=== PATIENT | male | born 2000 ===

== ENCOUNTER 2022-04-19 13:44 | Emergency (ER) | payer OTHER ==
[~2022-04-19] VITALS: Ht 182.9 cm; Wt 94.3 kg
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
[2022-04-19] MEDS ORDERED: morphine INJ 10 MG/ML 1ML (SYR OR VIAL) IVP STA (14:13)
[2022-04-19] MEDS ORDERED: TETANUS,DIPTH,PERTUSS P/F (BOOSTRIX) 0.5 ML VIAL IM ONE (14:15)
[2022-04-19 14:24] LABS: BASOPHILS % (AUTO) 0 % (0-10); EOSINOPHILS # (AUTO) 0.1 10^3/uL (0.0-0.3); EOSINOPHILS % (AUTO) 1 % (0-10); HEMATOCRIT 44 % (40-54); HEMOGLOBIN 15.3 g/dL (13.3-17.7); LYMPHOCYTES % (AUTO) 9 % (12-44); MEAN CORPUSCULAR HEMOGLOBIN 30 pg (25-34); MEAN CORPUSCULAR HGB CONC 35 g/dL (32-36); MEAN CORPUSCULAR VOLUME 87 fL (80-99); MEAN PLATELET VOLUME 9.9 fL (9.0-12.2); MONOCYTES # (AUTO) 0.7 10^3/uL (0.0-1.0); MONOCYTES % (AUTO) 6 % (0-12); NEUTROPHILS # (AUTO) 9.8 10^3/uL (1.8-7.8); NEUTROPHILS % (AUTO) 84 % (42-75); PLATELET COUNT 307 10^3/uL (130-400); WHITE BLOOD COUNT 11.7 10^3/uL (4.3-11.0)
[2022-04-19 14:34] LABS: ALBUMIN 4.4 GM/DL (3.2-4.5); POTASSIUM 4.1 MMOL/L (3.6-5.0)
[2022-04-19 14:36] LABS: CALCIUM 9.4 MG/DL (8.5-10.1)
[2022-04-19 14:37] LABS: TOTAL PROTEIN 7.6 GM/DL (6.4-8.2)
[2022-04-19 14:39] LABS: BILIRUBIN,TOTAL 0.5 MG/DL (0.1-1.0)
[2022-04-19 14:41] LABS: CREATININE SERUM 1.21 MG/DL (0.60-1.30)
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
[2022-04-19] MEDS ORDERED: HYDROcodone/APAP 7.5 MG/325 MG (LORTAB, LORCET PLUS) TABLET PO ONE (15:15)
[2022-04-19] MEDS ORDERED: ACHD5005 PO ×3 (15:22→18:48)
[2022-04-19 15:36] VITALS: BP 164/98
== END 2022-04-19 15:38 | disposition home or self-care (01) ==
LOC: ER 13:49
DX: S42.021A Displaced fracture of shaft of right clavicle, initial encounter for closed fracture (principal); S70.211A Abrasion, right hip, initial encounter; Z23 Encounter for immunization; Z28.310 Unvaccinated for COVID-19; V23.49XA Other motorcycle driver injured in collision with car, pick-up truck or van in traffic accident, initial encounter; Y93.55 Activity, bike riding; Y92.410 Unspecified street and highway as the place of occurrence of the external cause
CPT/HCPCS: 36415; 70450; 72125; 73030; 80053; 85025; 90715